=== PATIENT | male | born 1985 | race African-American/Black ===

== ENCOUNTER 2018-08-21 15:57 | Emergency (ER) | payer SELFPAY ==
[~2018-08-21] VITALS: Ht 175.3 cm; Wt 72.7 kg
[2018-08-21 16:05] VITALS: Ht 175.3 cm; Wt 72.7 kg
[2018-08-21 16:27] LABS: BASOPHILS 0.2 % (0-2); EOSINOPHILS 0.6 % (0-7); HEMATOCRIT 44.9 % (42.0-54.0); HEMOGLOBIN 15.5 g/dL (13.5-17.5); IMMATURE GRANULOCYTES 0.3 % (0-5); MCH 33.2 pg (26.0-34.0); MCHC 34.5 g/dL (31.0-37.0); MCV 96.1 fL (80.0-100.0); MEAN PLATELET VOLUME 9.9 fL (7.4-10.4); MONOCYTES 7.6 % (2-11); NEUTROPHILS 81.3 % (40-80); RBC 4.67 10x6/uL (4.20-6.10); WBC 6.2 10x3/uL (4.8-10.8)
[2018-08-21 16:29] LABS: PLATELET COUNT 160 10x3/uL (130-400)
[2018-08-21 16:36] LABS: APPEARANCE CLEAR (CLEAR); BILIRUBIN NEGATIVE (NEGATIVE); COLOR YELLOW (YELLOW); GLUCOSE NEGATIVE (NEGATIVE); KETONE NEGATIVE (NEGATIVE); NITRITE NEGATIVE (NEGATIVE); PROTEIN TRACE mg/dL (NEGATIVE); UROBILINOGEN NORMAL (NORMAL)
[2018-08-21 16:44] LABS: ALBUMIN 3.6 g/dL (3.4-5.0); ANION GAP 11.5 mmol/L (8-16); BILIRUBIN - TOTAL 0.68 mg/dL (0.2-1.3); CALCIUM 9.5 mg/dL (8.5-10.1); CARBON DIOXIDE 31.3 mmol/L (21.0-32.0); CREATININE - SERUM 1.6 mg/dL (0.6-1.3); POTASSIUM - SERUM 3.8 mmol/L (3.5-5.1); PROTEIN - SERUM 7.2 g/dL (6.4-8.2)
[2018-08-21] MEDS ORDERED: CARAFATE1 G PO (18:53)
[2018-08-21] MEDS ORDERED: BENTYL 20 MG TA20 MG PO (18:53)
[2018-08-21] MEDS ORDERED: OMEPRAZOLE40 MG PO (18:53)
[2018-08-21 19:30] VITALS: BP 137/86
== END 2018-08-21 19:31 | disposition home or self-care (01) ==
LOC: D.ER 15:57
PROVIDERS: Emergency Medicine
DX: K29.20 Alcoholic gastritis without bleeding (principal); R11.0 Nausea

== ENCOUNTER 2018-08-27 15:08 | Inpatient (IN) | payer MEDICAID ==
[~2018-08-27] VITALS: Ht 175.3 cm; Wt 72.6 kg
[~2018-08-27 15:08] MED LIST: BENTYL 20 MG TA20 MG PO; CARAFATE1 G PO; OMEPRAZOLE40 MG PO
[2018-08-27 16:35] LABS: BASOPHILS 0.1 % (0-2); EOSINOPHILS 0.3 % (0-7); HEMATOCRIT 41.5 % (42.0-54.0); HEMOGLOBIN 14.2 g/dL (13.5-17.5); IMMATURE GRANULOCYTES 0.1 % (0-5); LYMPHOCYTES 8.6 % (15-50); MCH 32.7 pg (26.0-34.0); MCHC 34.2 g/dL (31.0-37.0); MCV 95.6 fL (80.0-100.0); MEAN PLATELET VOLUME 10.3 fL (7.4-10.4); MONOCYTES 5.6 % (2-11); NEUTROPHILS 85.3 % (40-80); PLATELET COUNT 190 10x3/uL (130-400); RBC 4.34 10x6/uL (4.20-6.10); RDW 13.5 % (11.5-14.5); WBC 7.1 10x3/uL (4.8-10.8)
[2018-08-27 16:48] LABS: ALBUMIN 3.1 g/dL (3.4-5.0); ALKALINE PHOSPHATASE 56 U/L (46-116); ALT (SGPT) 19 U/L (10-68); BILIRUBIN - TOTAL 0.18 mg/dL (0.2-1.3); CALC OSMOLALITY 280 mosm/kg (275-300); CALCIUM 8.8 mg/dL (8.5-10.1); CARBON DIOXIDE 29.6 mmol/L (21.0-32.0); CHLORIDE - SERUM 106 mmol/L (98-107); CREATININE - SERUM 1.5 mg/dL (0.6-1.3); GLUCOSE 119 mg/dL (74-106); POTASSIUM - SERUM 4.7 mmol/L (3.5-5.1); PROTEIN - SERUM 6.3 g/dL (6.4-8.2); SODIUM 141 mmol/L (136-145); UREA NITROGEN 11 mg/dL (7-18); eGFR NON AFRICAN AMERICAN 57 mL/min (90-120)
[2018-08-27 16:51] LABS: AMYLASE - SERUM 124 U/L (25-115); LIPASE 151 U/L (73-393); TROPONIN-I < 0.017 ng/mL (0.000-0.060)
[2018-08-27 17:14] VITALS: BP 136/87
--- NOTE | 2018-08-27 17:21 | NUR ---
URINE SPEC OBTAINED , LABELED AT BS, AND SENT TO LAB
[2018-08-27 17:50] LABS: APPEARANCE CLEAR (CLEAR); BILIRUBIN NEGATIVE (NEGATIVE); COLOR YELLOW (YELLOW); GLUCOSE NEGATIVE (NEGATIVE); KETONE NEGATIVE (NEGATIVE); NITRITE NEGATIVE (NEGATIVE); PROTEIN NEGATIVE (NEGATIVE); SPECIFIC GRAVITY 1.025 (1.005-1.020); UROBILINOGEN NORMAL (NORMAL)
[2018-08-27 18:49] VITALS: BP 134/81
--- NOTE | 2018-08-27 19:08 | NUR ---
BS REPORT TO KIKE JUDD AND KIKE WILKES BY DERRICK GUY
--- NOTE | 2018-08-27 19:32 | NUR ---
PT PLACED IN TRENDELENBERG POSITION PER DR LE'S ORDERS.
[2018-08-27 20:00] VITALS: BP 114/67
[2018-08-27 21:49] VITALS: BP 114/67; BMI 23.6
[2018-08-28] VITALS (11 sets, daily range): BP systolic 110–137; BP diastolic 49–78; Ht 175.3 cm; Wt 72.6 kg
[2018-08-28 06:46] LABS: BASOPHILS 0.1 % (0-2); EOSINOPHILS 0 % (0-7); HEMATOCRIT 40.6 % (42.0-54.0); IMMATURE GRANULOCYTES 0.1 % (0-5); LYMPHOCYTES 3.6 % (15-50); MCH 32.5 pg (26.0-34.0); MCHC 34.5 g/dL (31.0-37.0); MCV 94.2 fL (80.0-100.0); MEAN PLATELET VOLUME 10.7 fL (7.4-10.4); MONOCYTES 6.6 % (2-11); NEUTROPHILS 89.6 % (40-80); PLATELET COUNT 213 10x3/uL (130-400); RBC 4.31 10x6/uL (4.20-6.10); RDW 13.6 % (11.5-14.5)
[2018-08-28 06:48] LABS: WBC 11.7 10x3/uL (4.8-10.8)
[2018-08-28 07:07] LABS: ALBUMIN 2.6 g/dL (3.4-5.0); ANION GAP 10.4 mmol/L (8-16); BILIRUBIN - TOTAL 0.34 mg/dL (0.2-1.3); CALCIUM 8.2 mg/dL (8.5-10.1); CARBON DIOXIDE 26.8 mmol/L (21.0-32.0); CREATININE - SERUM 1.3 mg/dL (0.6-1.3); POTASSIUM - SERUM 4.2 mmol/L (3.5-5.1); PROTEIN - SERUM 5.6 g/dL (6.4-8.2)
--- NOTE | 2018-08-28 07:56 | NUR ---
AAOX4. ON ROOM AIR, IV TO RIGHT FOREARM, PATENT, INFUSING NS AT 150ML/HR, DRESSING TO RIGHT INGUINAL AREA, SCANT DRAINAGE SEEN ON DRESSING, DENIES ANY CURRENT NEEDS OR DISCOMFORTS, BED LOWERED AND LOCKED, CALL LIGHT WITHIN REACH. CPOC
--- NOTE | 2018-08-28 12:35 | NUR ---
REQUESTED PRN PAIN MEDICATION FOR PAIN LEVEL 5/10 THAT INCREASES WITH MOVEMENT. ADMINISTERED PRN HYDROCODONE PER ORDER, CHANGED DRESSING TO RIGHT INGUINAL AREA, SWOLLEN SCROTUM, NO COMPLAINTS OF DYSURIA. DENIES ANY OTHER NEEDS OR DISCOMFORTS, BED LOWERED AND LOCKED,CALL LIGHT WITHIN REACH. CPOC
--- NOTE | 2018-08-28 13:28 | NUR ---
PAIN LEVEL 2/10 AFTER MEDICATION FOR PAIN. TOLERATED CLEAR AND FULL LIQUID MEALS. NO COMPLAINTS OF PAIN TO ABD, N/V/D. BED LOWERED AND LOCKED, CALL LIGHT WITHIN REACH. CPOC
[2018-08-28] MEDS ORDERED: NORCO-10 PO (15:57)
--- NOTE | 2018-08-28 15:58 | OP ---
PATIENT NAME: NUSRAT YI MEDICAL RECORD: [id number] :83 LOCATION:[id number] ADMISSION DATE:08/27/18 SURGEON: KYLE MEJIA MD DATE OF OPERATION: 08/28/2018 PREOPERATIVE DIAGNOSES: 1. Incarcerated right inguinal hernia. 2. Small-bowel obstruction secondary to incarcerated right inguinal hernia. POSTOPERATIVE DIAGNOSES: 1. Incarcerated right inguinal hernia. 2. Small-bowel obstruction secondary to incarcerated right inguinal hernia. PROCEDURE: 1. Right inguinal hernia repair with medium PHS mesh. 2. Right orchiopexy. SURGEON: Kyle Mejia MD REPORT OF PROCEDURE: The patient's abdomen and groin were all prepped and draped in sterile fashion. An oblique incision was made above the inguinal ligament. Electrocautery was used to dissect through the subcutaneous tissues to the external oblique fascia. The patient had incarcerated tissue coming through the external ring. I opened up a small opening in the external oblique fascia and did blunt dissection up to the external ring, until we were able to finally open this up using electrocautery. I then opened up the hernia sac and was able to eviscerate the small bowel through the wound and out of the patient's scrotum. The small bowel was noted to be edematous and dusky, but there was no sign of halima necrosis and there was no sign of any perforation. I was able to free up some of the tissue down at the base of the hernia sac to relieve some of the pressure and when I did this, I was able to pull up some of the small bowel from the abdomen, which appeared normal in caliber and had no signs of necrosis. Once we had freed up the tension, then the small bowel remained edematous, but the tissue became pink and no longer had a dusky appearance. Due to the edematous nature of the tissue, it was difficult to reduce it, but I was finally able to tediously reduce the small bowel back into the abdominal cavity with the patient in Trendelenburg position. Once the small bowel was pushed back into position, then we began to dissect the hernia sac off the patient's spermatic cord. There was injury to the spermatic cord, which causes to do a ligation of it. Some of the structures were intact including the vas deferens and some of the vascular structures. The hernia sac was excised down to its base and then oversewn with running 2-0 Vicryl. As we inspected the testicle further, I did not see any evidence of any ischemic problems. There was no attachment of the testicle to the patient's scrotum. I was concerned that the testicle would be a set up for a torsion, so an orchiopexy was performed with interrupted 3-0 silks times 2 as we pexy'd to the testicle down to the base of the scrotum. At this point, the testicle rested easily in the patient's scrotum. We irrigated out the wound thoroughly with normal saline. At this point, we were able to actually perform our hernia repair. The spermatic cord was elevated and a Kalyn was placed around it. An opening was made in the inguinal floor and the preperitoneal space of Retzius was opened up in all directions. A medium PHS mesh was then inserted and sutured down on all 4 sides using multiple interrupted 0 Vicryls. The mesh appeared to rest in good position and there was no sign of any bleeding. At this point, the wound was irrigated out with normal saline and the [place] was removed. The external OPERATIVE REPORT [id number] KASSIDY,DEMJAMIEO oblique fascia was closed with running 2-0 Vicryl, Edna's was closed with interrupted 3-0 Vicryl and the skin was closed with running subcutaneous 5-0 Monocryl. The ilioinguinal nerve had been found during the procedure and it was high ligated. COMPLICATIONS: None. CONDITION: Stable. ANESTHESIA: General endotracheal and local. BLOOD LOSS: 50 mL. 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
--- NOTE | 2018-08-28 18:09 | NUR ---
DISCHARGE INSTRUCTIONS GIVEN, VERBALIZES UNDERSTANDING, IV TO RIGHT FOREARM DISCONTINUED WITH CATHETER TIP INTACT, DENIES ANY CONCERNS OR QUESTIONS AT CURRENT TIME.
== END 2018-08-28 19:30 | disposition home or self-care (01) | DRG 352 ==
LOC: D.ER 15:08 → D.MS 19:24 → D.ER 19:51 → D.MS 08-28 19:30
PROVIDERS: Family Medicine; ADMIT Surgery; ATTEND Surgery
PROC: 0YUA0JZ Supplement Bilateral Inguinal Region with Synthetic Substitute, Open Approach (ICD-10-PCS; principal; 2018-08-28)
PROC: 0VS90ZZ Reposition Right Testis, Open Approach (ICD-10-PCS; 2018-08-28)
DX: K40.30 Unilateral inguinal hernia, with obstruction, without gangrene, not specified as recurrent (principal)

== ENCOUNTER 2020-05-30 08:41 | Emergency (ER) | payer OTHER ==
[~2020-05-30] VITALS: Ht 175.3 cm; Wt 72.7 kg
[~2020-05-30 08:41] MED LIST changes: +NORCO-10 PO
[2020-05-30 08:47] VITALS: BP 134/68; Ht 175.3 cm; Wt 72.7 kg
[2020-05-30 09:59] LABS: BASOPHILS 0.2 % (0-2); EOSINOPHILS 2.2 % (0-7); HEMATOCRIT 41.2 % (42.0-54.0); HEMOGLOBIN 13.8 g/dL (13.5-17.5); LYMPHOCYTE ABS# 1.76 10x3/uL (1.32-3.57); LYMPHOCYTES 32.7 % (15-50); MCH 34.8 pg (26.0-34.0); MCHC 33.5 g/dL (31.0-37.0); MCV 103.8 fL (80.0-100.0); MEAN PLATELET VOLUME 9.7 fL (7.4-10.4); MONOCYTES 10.9 % (2-11); NEUTROPHIL ABS# 2.91 10x3/uL (1.78-5.38); PLATELET COUNT 186 10x3/uL (130-400); RBC 3.97 10x6/uL (4.20-6.10); RDW 14.7 % (11.5-14.5); WBC 5.4 10x3/uL (4.8-10.8)
[2020-05-30 10:10] LABS: ANION GAP 13.4 mmol/L (8-16); CALCIUM 8.1 mg/dL (8.5-10.1); CARBON DIOXIDE 25.4 mmol/L (21.0-32.0); CREATININE - SERUM 1.3 mg/dL (0.6-1.3); POTASSIUM - SERUM 3.8 mmol/L (3.5-5.1)
[2020-05-30 10:13] LABS: ALBUMIN 2.7 g/dL (3.4-5.0); BILIRUBIN - TOTAL 0.19 mg/dL (0.2-1.3); PROTEIN - SERUM 6.2 g/dL (6.4-8.2)
== END 2020-05-30 12:48 | disposition home or self-care (01) ==
LOC: D.ER 08:41
PROVIDERS: Family Medicine
DX: M79.651 Pain in right thigh (principal); I83.91 Asymptomatic varicose veins of right lower extremity

== ENCOUNTER 2020-07-10 22:43 | Emergency (ER) | payer OTHER ==
[~2020-07-10] VITALS: Ht 175.3 cm; Wt 81.8 kg
[2020-07-10 22:51] VITALS: Ht 175.3 cm; Wt 81.8 kg
[2020-07-10 23:23] LABS: BILIRUBIN NEGATIVE (NEGATIVE); KETONE NEGATIVE (NEGATIVE); NITRITE NEGATIVE (NEGATIVE); UROBILINOGEN NORMAL mg/dL (< 2)
[2020-07-10 23:25] LABS: BACTERIA MODERATE HPF (NONE SEEN); SQUAMOUS EPITHELIAL 0-5 HPF (0-4)
[2020-07-10] MEDS ORDERED: MACROBID100 MG PO (23:32)
[2020-07-10 23:58] VITALS: BP 132/84
== END 2020-07-10 23:58 | disposition home or self-care (01) ==
LOC: D.ER 22:43
PROVIDERS: Family Medicine
DX: N39.0 Urinary tract infection, site not specified (principal)